=== PATIENT | female | born 1960 | race Caucasian/White ===

== ENCOUNTER → 2017-05-14 | Outpatient (CLI) | payer OTHER | LOC: BMCIMAGING 12:10 | PROVIDERS: ATTEND Nurse Practitioner Adult Health | DX: Z12.31 Encounter for screening mammogram for malignant neoplasm of breast (principal); Z80.3 Family history of malignant neoplasm of breast; R92.8 Other abnormal and inconclusive findings on diagnostic imaging of breast | CPT/HCPCS: G0202 ==

== ENCOUNTER → 2017-05-22 | Outpatient (CLI) | payer OTHER | LOC: BMCIMAGING 10:21 | PROVIDERS: ATTEND Nurse Practitioner Adult Health | DX: R92.8 Other abnormal and inconclusive findings on diagnostic imaging of breast (principal) | CPT/HCPCS: G0206 ==